=== PATIENT | female | born 1950 | race Caucasian/White ===

== ENCOUNTER 2019-08-12 13:59 | Outpatient (CLI) | payer MEDICARE, SELFPAY ==
--- NOTE | ~2019-08-12 | US_ITS ---
EXAMINATION: US art doppler w press MELODY HORTON EXAM DATE: 08/12/2019 14:41 INDICATION: Peripheral vascular disease. Decreased pedal pulses. TECHNIQUE: Segmental pressures and plethysmographic and Doppler waveforms of the brachial and lower e xtremity arteries were obtained. There is no prior study for comparison. FINDINGS: Right and left brachial artery pressures of 151 mm Hg and 160 mm Hg, respectively, are concordant (no rmal difference <= 30 mmHg). The right and left thigh-brachial pressure indices are 1.13, 1.14, resp ectively (normal > 1.2). RIGHT LEG: The ankle-brachial index (TERI) is 1.03 (normal >= 0.9-1). The great toe-brachial index (TBI) is 0.66 (normal >= 0.65). The lower extremity ratios, segmental pressure gradients as follows; Proximal superficial femoral artery:- 1.13 (181 mmHg). Distal superficial femoral artery: ----- 1.09 (175 mmHg). Popliteal: 1.04 (166 mmHg). Dorsalis pedis: 1.02 (164 mmHg). Posterior tibial: 1.03 (165 mmHg). (Normal gradients <= 20-30 mmHg between adjacent levels on the same leg or the same levels on the two legs). Arterial waveforms are biphasic. LEFT LEG: The ankle-brachial index (TERI) is 1.02 (normal >= 0.9-1). The great toe-brachial index (TBI) is 0.79 (normal >= 0.65). The lower extremity ratios, segmental pressure gradients as follows; Proximal superficial femoral artery:- 1.14 (182 mmHg). Distal superficial femoral artery: ----- 1.15 (184 mmHg). Popliteal: 1.16 (186 mmHg). Dorsalis pedis: 0.97 (155 mmHg). Posterior tibial: 1.02 (164 mmHg). (Normal gradients <= 20-30 mmHg between adjacent levels on the same leg or the same levels on the two legs). Arterial waveforms are biphasic. IMPRESSION: 1. Right ankle-brachial index 1.03, normal. 2. Left ankle-brachial index 1.02, normal. 3. Segmental pressures as above. Reviewed, dictated and finalized at location B.
== END 2019-08-12 14:00 | disposition home or self-care (01) ==
PROVIDERS: PCP Family Medicine; Visit Provider Podiatrist Foot & Ankle Surgery
DX: I73.9 Peripheral vascular disease, unspecified (principal)
CPT/HCPCS: 93923